=== PATIENT | female | born 1950 | race Caucasian/White ===

== ENCOUNTER 2022-05-20 18:30 | Emergency (ER) | payer OTHER ==
[~2022-05-20] VITALS: Ht 152.4 cm; Wt 136.1 kg
[2022-05-20 19:37] LABS: Source, Urine Clean Catch
[2022-05-20 19:41] LABS: BASOPHILS ABSOLUTE AUTO 0.06 K/mm3 (0.00-0.23); BASOPHILS PERCENT AUTO 1 % (0-2); EOSINOPHILS PERCENT AUTO 1 % (0-6); Hemoglobin 15.8 g/dL (11.5-16.0); IMMATURE GRAN ABSOLUTE AUTO 0.06 K/mm3 (0.00-0.10); IMMATURE GRAN PERCENT AUTO 1 % (0-1); LYMPHOCYTES ABSOLUTE AUTO 2.81 K/mm3 (0.84-5.20); LYMPHOCYTES PERCENT AUTO 30 % (21-46); MONOCYTES ABSOLUTE AUTO 1.01 K/mm3 (0.16-1.47); MONOCYTES PERCENT AUTO 11 % (4-13); Mean Corpuscular HGB 30.2 pg (26.0-34.0); Mean Corpuscular HGB Conc 34.3 g/dL (31.5-36.5); Mean Corpuscular Volume 88 fL (80-100); Mean Platelet Volume 9.4 fL (9.1-12.4); NEUTROPHILS ABSOLUTE AUTO 5.47 K/mm3 (1.96-9.15); NEUTROPHILS PERCENT AUTO 58 % (41-73); Platelet Count 257 K/mm3 (150-400); RDW Coefficient Variation 12.4 % (11.7-14.2); RDW Standard Deviation 40.2 fL (35.1-46.3); Red Blood Cell Count 5.23 M/mm3 (3.80-5.20); White Blood Cell Count 9.51 K/mm3 (4.00-11.30)
[2022-05-20 19:54] LABS: Appearance, Urine Cloudy (Clear); Bilirubin, Urine Neg (Neg); Blood, Urine 3+ (Neg); Color, Urine Yellow (P-Yellow); Glucose Qualitative, Urine Neg (Neg); Ketones, Urine 1+ (Neg); Leukocyte Esterase, Urine 2+ (Neg); Nitrite, Urine Neg (Neg); Protein, Urine 4+ (Neg); Specific Gravity, Urine 1.025 (1.003-1.022); Urobilinogen, Urine NORM (Normal)
[2022-05-20 19:59] LABS: Albumin, Blood 3.6 g/dL (3.4-5.0); Albumin/Globulin Ratio 0.8 (0.8-1.8); Bilirubin, Total 0.6 mg/dL (0.1-1.0); Creatinine, Blood 1.18 mg/dL (0.40-1.00); Globulin, Blood 4.8 g/dL (2.2-4.0); Potassium, Blood 4.4 mmol/L (3.5-5.5); Total Protein, Blood 8.4 g/dL (6.4-8.2)
[2022-05-20 20:16] LABS: Bacteria Many /hpf; Mucus Light (0-Heavy); Red Blood Cells, Urine 0-2 /hpf (0-2); Renal Epithelial Rare /hpf (0-Rare); Squamous Epithelial Cells Rare /hpf (Few); White Blood Cells, Urine 25-50 /hpf (0-5)
[2022-05-21] MEDS ORDERED: Keflex500 MG PO (00:04)
== END 2022-05-21 00:27 | disposition home or self-care (01) ==
LOC: ER 18:30
PROVIDERS: Emergency Medicine
DX: E11.9 Type 2 diabetes mellitus without complications (principal); N39.0 Urinary tract infection, site not specified; R41.0 Disorientation, unspecified; Z88.5 Allergy status to narcotic agent
CPT/HCPCS: 36415; 80053; 81001; 82947; 85025; A9270

== ENCOUNTER 2022-06-29 19:56 | Emergency (ER) | payer OTHER ==
[~2022-06-29] VITALS: Ht 152.4 cm; Wt 99.8 kg
[~2022-06-29 19:56] MED LIST: Keflex500 MG PO
[2022-06-29 21:11] LABS: Albumin, Blood 3.6 g/dL (3.4-5.0); Albumin/Globulin Ratio 0.8 (0.8-1.8); Bilirubin, Total 0.8 mg/dL (0.1-1.0); Bun/Creatinine Ratio 25.6 (12.0-20.0); Calcium, Blood 10.1 mg/dL (8.5-10.1); Creatinine, Blood 1.6 mg/dL (0.40-1.00); Globulin, Blood 4.8 g/dL (2.2-4.0); Potassium, Blood 4.3 mmol/L (3.5-5.5); Total Protein, Blood 8.4 g/dL (6.4-8.2)
[2022-06-29 21:11] LABS: Source, Urine Straight Cath
[2022-06-29 21:16] LABS: Appearance, Urine Turbid (Clear); Blood, Urine 1+ (Neg); Color, Urine Yellow (P-Yellow); Glucose Qualitative, Urine Neg (Neg); Ketones, Urine Neg (Neg); Leukocyte Esterase, Urine 3+ (Neg); Nitrite, Urine Pos (Neg); Protein, Urine 3+ (Neg); Specific Gravity, Urine 1.025 (1.003-1.022); Urobilinogen, Urine 1+ (Normal)
[2022-06-29 21:22] LABS: Bilirubin, Urine 1+ (Neg)
[2022-06-29 21:23] LABS: Bacteria Many /hpf; Squamous Epithelial Cells Few /hpf (Few); White Blood Cells, Urine TNTC /hpf (0-5)
[2022-06-29 21:41] LABS: BASOPHILS ABSOLUTE AUTO 0.05 K/mm3 (0.00-0.23); BASOPHILS PERCENT AUTO 0 % (0-2); EOSINOPHILS ABSOLUTE AUTO 0.13 K/mm3 (0.00-0.68); EOSINOPHILS PERCENT AUTO 1 % (0-6); Hematocrit 45.8 % (33.0-51.0); Hemoglobin 15.7 g/dL (11.5-16.0); IMMATURE GRAN ABSOLUTE AUTO 0.04 K/mm3 (0.00-0.10); IMMATURE GRAN PERCENT AUTO 0 % (0-1); LYMPHOCYTES ABSOLUTE AUTO 1.79 K/mm3 (0.84-5.20); LYMPHOCYTES PERCENT AUTO 15 % (21-46); MONOCYTES ABSOLUTE AUTO 0.93 K/mm3 (0.16-1.47); MONOCYTES PERCENT AUTO 8 % (4-13); Mean Corpuscular HGB Conc 34.3 g/dL (31.5-36.5); Mean Corpuscular Volume 88 fL (80-100); Mean Platelet Volume 9.7 fL (9.1-12.4); NEUTROPHILS PERCENT AUTO 75 % (41-73); Platelet Count 227 K/mm3 (150-400); RDW Standard Deviation 38.5 fL (35.1-46.3); Red Blood Cell Count 5.23 M/mm3 (3.80-5.20); White Blood Cell Count 11.94 K/mm3 (4.00-11.30)
[2022-06-29 22:04] LABS: Influenza A, PCR NEGATIVE (NEGATIVE); Influenza B, PCR NEGATIVE (NEGATIVE); Resp Syncytial Virus, PCR NEGATIVE (NEGATIVE); SARS-Cov-2 (COVID-19) PCR, MMC NEGATIVE (NEGATIVE)
[2022-06-29] MEDS ORDERED: CEFD300 PO (23:45)
== END 2022-06-30 01:13 | disposition home or self-care (01) ==
LOC: ER 19:56
PROVIDERS: Emergency Medicine; Student in an Organized Health Care Education/Training Program
DX: N39.0 Urinary tract infection, site not specified (principal); R41.0 Disorientation, unspecified; E86.0 Dehydration; E11.9 Type 2 diabetes mellitus without complications; Z20.822 Contact with and (suspected) exposure to COVID-19; Z79.899 Other long term (current) drug therapy; Z88.5 Allergy status to narcotic agent
CPT/HCPCS: 0241U; 80053; 81001; 85025; 87077; 87086; 87186; J0696; J7030; P9612

== ENCOUNTER 2022-07-10 19:28 | Inpatient (IN) | payer OTHER ==
[~2022-07-10] VITALS: Ht 152.4 cm; Wt 109.5 kg
[~2022-07-10 19:28] MED LIST changes: +CEFD300 PO
[2022-07-10 20:48] LABS: Source, Urine Straight Cath
[2022-07-10 20:51] LABS: BASOPHILS ABSOLUTE AUTO 0.07 K/mm3 (0.00-0.23); BASOPHILS PERCENT AUTO 0 % (0-2); EOSINOPHILS ABSOLUTE AUTO 0.06 K/mm3 (0.00-0.68); EOSINOPHILS PERCENT AUTO 0 % (0-6); Hematocrit 43.5 % (33.0-51.0); Hemoglobin 15.3 g/dL (11.5-16.0); IMMATURE GRAN ABSOLUTE AUTO 0.13 K/mm3 (0.00-0.10); IMMATURE GRAN PERCENT AUTO 1 % (0-1); LYMPHOCYTES ABSOLUTE AUTO 1.69 K/mm3 (0.84-5.20); LYMPHOCYTES PERCENT AUTO 10 % (21-46); MONOCYTES PERCENT AUTO 6 % (4-13); Mean Corpuscular HGB 30.1 pg (26.0-34.0); Mean Corpuscular HGB Conc 35.2 g/dL (31.5-36.5); Mean Corpuscular Volume 86 fL (80-100); Mean Platelet Volume 9.3 fL (9.1-12.4); NEUTROPHILS ABSOLUTE AUTO 13.65 K/mm3 (1.96-9.15); NEUTROPHILS PERCENT AUTO 82 % (41-73); Platelet Count 383 K/mm3 (150-400); RDW Coefficient Variation 12.4 % (11.7-14.2); RDW Standard Deviation 38.5 fL (35.1-46.3); Red Blood Cell Count 5.08 M/mm3 (3.80-5.20)
[2022-07-10 20:52] LABS: Appearance, Urine Hazy (Clear); Bilirubin, Urine Neg (Neg); Blood, Urine 2+ (Neg); Color, Urine Yellow (P-Yellow); Glucose Qualitative, Urine Neg (Neg); Ketones, Urine Neg (Neg); Leukocyte Esterase, Urine Neg (Neg); Nitrite, Urine Neg (Neg); Protein, Urine 2+ (Neg); Urobilinogen, Urine NORM (Normal)
[2022-07-10] MEDS ORDERED: ALLOPURINOL100 M1 PO (21:04)
[2022-07-10] MEDS ORDERED: ATEN50 PO (21:04)
[2022-07-10] MEDS ORDERED: HYDCHL25 PO (21:05)
[2022-07-10] MEDS ORDERED: Prinivil10 MG PO (21:05)
[2022-07-10 21:06] LABS: Amorphous Light (0-Heavy); Bacteria Few /hpf; Hyaline Casts 0-2 /lpf (0-2); Red Blood Cells, Urine 0-2 /hpf (0-2); Squamous Epithelial Cells Mod /hpf (Few); White Blood Cells, Urine 0-2 /hpf (0-5)
[2022-07-10] MEDS ORDERED: TRESIBA FL200 UNIT/2 SC (21:09)
[2022-07-10 21:10] LABS: Albumin, Blood 2.7 g/dL (3.4-5.0); Albumin/Globulin Ratio 0.5 (0.8-1.8); Bilirubin, Total 0.4 mg/dL (0.1-1.0); Bun/Creatinine Ratio 27.8 (12.0-20.0); Calcium, Blood 9.7 mg/dL (8.5-10.1); Creatinine, Blood 1.87 mg/dL (0.40-1.00); Globulin, Blood 5.4 g/dL (2.2-4.0); Potassium, Blood 3.1 mmol/L (3.5-5.5); Total Protein, Blood 8.1 g/dL (6.4-8.2)
[2022-07-10 22:33] LABS: Influenza A, PCR NEGATIVE (NEGATIVE); Influenza B, PCR NEGATIVE (NEGATIVE); Resp Syncytial Virus, PCR NEGATIVE (NEGATIVE); SARS-Cov-2 (COVID-19) PCR, MMC NEGATIVE (NEGATIVE)
[2022-07-11 01:36] LABS: Adenovirus F 40/41 Not Detected (NOT DETECT); Astrovirus Not Detected (NOT DETECT); Campylobacter Sp Not Detected (NOT DETECT); Cryptosporidium Not Detected (NOT DETECT); Cyclospora Cayetanensis Not Detected (NOT DETECT); E. Coli O157 Not Detected (NOT DETECT); Entamoeba Histolytica Not Detected (NOT DETECT); Enteroaggregative E. coli-EAEC Not Detected (NOT DETECT); Enteropathogenic E. coli-EPEC Not Detected (NOT DETECT); Enterotoxigenic E. coli-ETEC Not Detected (NOT DETECT); Giardia Lamblia Not Detected (NOT DETECT); Norovirus GI/GII Not Detected (NOT DETECT); Plesiomonas Shigelloides Not Detected (NOT DETECT); Rotavirus A Not Detected (NOT DETECT); Salmonella Sp Not Detected (NOT DETECT); Sapovirus Not Detected (NOT DETECT); Shiga Toxin-prod E. coli-STEC Not Detected (NOT DETECT); Shigella/Enteroin E. coli-EIEC Not Detected (NOT DETECT); Vibrio Cholerae Not Detected (NOT DETECT); Vibrio Sp Not Detected (NOT DETECT); Yersinia Enterocolitica Not Detected (NOT DETECT)
--- NOTE | 2022-07-11 04:34 | NUR ---
SHIFT SUMMARY NOC ADMIT FROM ER WITH C/O INCREASED CONFUSION/WEAKNESS. PT A/O TO SELF AND FAMILY. PT HAS DEMENTIA. PT HAS UTI WHICH HAS BEEN LINGERING FOR 1 MONTH. OFFICIAL DX ACUTE DIVERTICULITIS. PT HAS DIARHHEA AND IS C DIF POSITIVE AND ON ENTERIC ISO PRECATIONS. PT IS INCONTINENT OF BOTH BM/URINE. PT HAS PROLAPSED HEMMOROID AND REDDENDED SACRAL AREA WHICH DEVELOPED A COUPLE HOURS AFTER PT ARRIVED EXCORIATION FROM 2 LIQUID/MUCUS INC BM PT HAD SINCE ARRIVING. PT HAS PALLIATIVE CARE AND PT/OT CONSULT/EVALS ORDERED. PT HAS CT ABD/PELVIS WITH CONTRAST AND 1V CHEST X-RAY ORDERED. PT POTASSIUM WAS 3.1 IN ED AND GIVEN 40 MEQ OF POTASSIUM, AWAITING AM LABS TO EVALUATE REPLACEMENT. PT CURRENTLY LIVES WITH GROWN GRANDKIDS AND FAMILY IS TALKING TO [facility] FOR [facility] PLACEMENT. PT SON ALEJO [phone] WILL BE IN IN AM TO ANSWER QUESTIONS AND PROVIDE MEDICAL HX FOR PT. PT HAS LR INFUSING @ 125 MLS. PT IS CURRENTLY RESTING WITH BED ALARM ON, BED IN LOWEST POSITION, AND CALL LIGHT WITHIN REACH. WCTM.
[2022-07-11 06:27] LABS: Bun/Creatinine Ratio 27.6 (12.0-20.0); Calcium, Blood 9.3 mg/dL (8.5-10.1); Creatinine, Blood 1.74 mg/dL (0.40-1.00); Potassium, Blood 3.3 mmol/L (3.5-5.5)
--- NOTE | 2022-07-11 14:34 | NUR ---
Attempted to see Pt. Physical Therapy currently in evaluating Pt. Pt pleasantly confused and unable to answer therapy's orientation questions appropriately. Spoke with Primary RN Lashawn and discussed case. Called and spoke with Pt's son Stephen. Provided update and reviewed plan of care. Engaged in therapeutic discussion regarding Pt's code status wishes. Educated on life sustaining treatments including risks and implications to CPR. Son Stephen reports Pt's wishes are DNR. Offered therapeutic listening and answered questions. Deferred some questions for LEEROY Guadalupe to answer regarding D/C plan. Setphen expresses appreciation and reports no other concerns at this time. Spoke with RN Anayeli Sosa and relayed son Stephen's request for a phone call regarding D/C plan. Palliative Care will remain available.
--- NOTE | 2022-07-11 18:56 | NUR ---
SHIFT SUMMARY- PT HAS HAD NO ACUTE CHANGES. SHE CONTINUES TO HAVE FREQUENT LOOSE STOOLS. SHE IS INCONTINENT OF BOWEL AND BLADDER. 1PA WITH ROLL AND CHANGE. BEDREST AT THIS TIME THE PT IS UNABLE TO FOLLOW INSTRUCTIONS WHEN IT COMES TO TRANSFERING. PHYSICAL THERAPY SAW THE PT AND NOTED THEY COULD NOT GET HER TO TRANSFER OR EVEN PERFORM A SINGLE SIT TO STAND. PT SON STATED THREE WEEKS AGO THE PT WAS WALKING AT HOME WITH A FWW INDEPENDENTLY. SHE HAS REQUIRED INCREASINGLY MORE ASSISTANCE WITH BASIC ADLS AND TRANSFERS HAVE BECOME FAR TOO DIFFICULT FOR THE FAMILY TO MANAGE. THEY ARE TRYING TO GET HER PLACED IN A FACILITY. CARE MANAGEMENT HAS SPOKEN TO THE FAMILY. PT IN BED CALL LIGHT IN REACH NO S&S OF DISTRESS NOTED. WILL CTM AND PASS ON TO NIGHT RN IN REPORT.
[2022-07-12 05:28] LABS: BASOPHILS ABSOLUTE AUTO 0.06 K/mm3 (0.00-0.23); BASOPHILS PERCENT AUTO 0 % (0-2); EOSINOPHILS ABSOLUTE AUTO 0.19 K/mm3 (0.00-0.68); EOSINOPHILS PERCENT AUTO 1 % (0-6); Hematocrit 37.8 % (33.0-51.0); Hemoglobin 13.3 g/dL (11.5-16.0); IMMATURE GRAN PERCENT AUTO 1 % (0-1); LYMPHOCYTES ABSOLUTE AUTO 2.11 K/mm3 (0.84-5.20); LYMPHOCYTES PERCENT AUTO 12 % (21-46); MONOCYTES ABSOLUTE AUTO 1.21 K/mm3 (0.16-1.47); MONOCYTES PERCENT AUTO 7 % (4-13); Mean Corpuscular HGB 29.6 pg (26.0-34.0); Mean Corpuscular HGB Conc 35.2 g/dL (31.5-36.5); Mean Corpuscular Volume 84 fL (80-100); Mean Platelet Volume 9.3 fL (9.1-12.4); NEUTROPHILS PERCENT AUTO 78 % (41-73); Platelet Count 341 K/mm3 (150-400); RDW Coefficient Variation 12.4 % (11.7-14.2); RDW Standard Deviation 37.3 fL (35.1-46.3); Red Blood Cell Count 4.49 M/mm3 (3.80-5.20); White Blood Cell Count 16.97 K/mm3 (4.00-11.30)
--- NOTE | 2022-07-12 06:00 | NUR ---
END OF SHIFT NURSING REPORT Admitted on the Jul 10 for acute diverticulitis, confusion, weakness and diahhrea. Tested positive for C-Diff and is on isolation. She is pleasantly confused and carries a simple conversation. Oriented to self and place, without full understanding on purpose on current events, along with her disease process. She had 3x episodes of loose large stool, brown with mucous and foul smell. She has skin excoriation without crusting or scabbing in damaris -area d/t frequent stool and urine incontinence. Barrier cream to excoriated areas, and mepilex form dressing applied to coccyx area
[2022-07-12 06:37] LABS: Albumin, Blood 2.3 g/dL (3.4-5.0); Albumin/Globulin Ratio 0.5 (0.8-1.8); Bilirubin, Total 0.4 mg/dL (0.1-1.0); Bun/Creatinine Ratio 21.3 (12.0-20.0); Calcium, Blood 9.1 mg/dL (8.5-10.1); Creatinine, Blood 1.5 mg/dL (0.40-1.00); Globulin, Blood 4.5 g/dL (2.2-4.0); Potassium, Blood 3.1 mmol/L (3.5-5.5); Total Protein, Blood 6.8 g/dL (6.4-8.2)
--- NOTE | 2022-07-12 16:19 | NUR ---
SHIFT SUMMARY- PT SEEMS A LITTLE MORE COGNITIVELY CLEAR TODAY, INTERACTING MORE READILY WITH STAFF. PT IS ABLE TO CARRY ON SHORT CONVERSATIONS WITH STAFF TODAY; YESTERDAY CONVERSATIONS WERE MORE ONE SIDED THE PT ONLY ANSWERED YES AND NO QUESTIONS. TODAY SHE EXPOUNDS ON THAT. THE PT WAS ASSISTED TO THE CHAIR BY NURSING STAFF, BUT THAT WAS DIFFICULT. CALLED FOR PHYSICAL THERAPY, THEY CAME TO SEE THE PT AND THE PT WAS UNABLE TO STAND FROM THE CHAIR. PER PHYSICAL THERAPY THE PT IS TO BE A LIFT PT FOR ALL TRANSFERS. PT IS PEPARING TO TRANSFER TO ROOM 345 FOR THE CIELING LIFT. ONCE PT IS TRANSFERED TO THE ROOM WITH THE LIFT, THE PLAN IS TO GET HER UP IN THE CHAIR FOR MEALS. PT IS INCONTINENT OF BOWEL AND BLADDER, HOWEVER SHE DOES ASK STAFF TO HELP HER GO TO THE BATHROOM WHEN SHE NEEDS CLEANING. WILL CTM AND PASS ON TO NIGHT RN IN REPORT.
[2022-07-13 05:44] LABS: BASOPHILS ABSOLUTE AUTO 0.09 K/mm3 (0.00-0.23); BASOPHILS PERCENT AUTO 1 % (0-2); EOSINOPHILS PERCENT AUTO 3 % (0-6); Hematocrit 38.2 % (33.0-51.0); Hemoglobin 13.4 g/dL (11.5-16.0); IMMATURE GRAN ABSOLUTE AUTO 0.13 K/mm3 (0.00-0.10); IMMATURE GRAN PERCENT AUTO 1 % (0-1); LYMPHOCYTES ABSOLUTE AUTO 2.55 K/mm3 (0.84-5.20); LYMPHOCYTES PERCENT AUTO 19 % (21-46); MONOCYTES ABSOLUTE AUTO 1.03 K/mm3 (0.16-1.47); MONOCYTES PERCENT AUTO 8 % (4-13); Mean Corpuscular HGB 29.7 pg (26.0-34.0); Mean Corpuscular HGB Conc 35.1 g/dL (31.5-36.5); Mean Corpuscular Volume 85 fL (80-100); Mean Platelet Volume 9.7 fL (9.1-12.4); NEUTROPHILS ABSOLUTE AUTO 9.62 K/mm3 (1.96-9.15); NEUTROPHILS PERCENT AUTO 70 % (41-73); Platelet Count 356 K/mm3 (150-400); RDW Coefficient Variation 12.4 % (11.7-14.2); RDW Standard Deviation 37.6 fL (35.1-46.3); Red Blood Cell Count 4.51 M/mm3 (3.80-5.20); White Blood Cell Count 13.82 K/mm3 (4.00-11.30)
[2022-07-13 06:13] LABS: Bun/Creatinine Ratio 21.1 (12.0-20.0); Calcium, Blood 9.2 mg/dL (8.5-10.1); Creatinine, Blood 1.33 mg/dL (0.40-1.00); Potassium, Blood 3.3 mmol/L (3.5-5.5)
--- NOTE | 2022-07-13 06:30 | NUR ---
END OF SHIFT NURSING REPORT Admitted on the Jul 10 for acute diverticulitis, confusion, weakness and diahhrea. Tested positive for C-Diff and is on isolation. Received report from Lashawn at 1900 and resumed PT care. She was sitting at bedside chair upright and pleasant. She was put back in bed using a ceiling lift without incidence. She is Oriented to self and place, remains confused on time and purporse. She had 2x episodes of loose stool, brown with mucous and foul smell. She has skin excoriation without crusting or scabbing in damaris -area d/t frequent stool and urine incontinence. Barrier cream to excoriated areas, and mepilex form dressing applied to coccyx area Serum potassium 3.3, notified Dr morris and coverage was ordered and administered.
--- NOTE | 2022-07-13 06:30 | NUR ---
END OF SHIFT NURSING REPORT Admitted on 07/11/2022 for fever, hypotention and increased confusion. She is talkative, oriented to self, and confused by new surroundings and time. Last hemodialysis (HD) 07/12/22, and planned on getting another HD tomorrow prior to resuming her regular schedule of MWF. HD access on Right Subclavian with a permanent dual portal cath wrapped in gauze. Site is clean with no s/s of infection or infiltration. Minimal x1-assist out of bed to bathroom using rolling walker, she is weak with unsteady gait. 0620: Kerline from [facility] called to report patient conversion from SR to Afib W/RVR 120-140's. Dr Stanley notified and ordered lopressor IVP.
--- NOTE | 2022-07-13 19:43 | NUR ---
SHIFT SUMMARY- PT HAS HAD NO ACUTE CHANGE T/O THE SHIFT, SHE WAS STARTED ON BANATROL AND HER LAST STOOL WAS FAR MORE SOFT AND NON FORMED RATHER THAN LIQUID. THE PT HAS HAD LESS FREQUENT STOOLS T/O THE SHIFT WELL. THE PT HAS BEEN UP IN THE CHAIR FOR ALL MEALS TODAY AND SHE WAS ABLE TO STAND AND TAKE SOME STEPS WITH THERAPY. BEDSIDE RPEORT COMPLETED WITH NIGHT RN, NO S&S OF DISTRESS NOTED AT THE TIME OF REPORT.
--- NOTE | 2022-07-14 06:00 | NUR ---
END OF SHIFT NURSING REPORT Admitted on the Jul 10 for acute diverticulitis, confusion, weakness and diahhrea. Tested positive for C-Diff and is on isolation. Received report from Lashawn at 1900 and resumed PT care. She was sitting at bedside chair upright and pleasant. Maximum assist to stand and use bedside commode and back to chair. Used ceiling lift ro put her back in bed. She is Oriented to self and place, remains confused on time and purporse. x1 bowel movement, semi-formed. She has skin excoriation without crusting or scabbing in damaris -area d/t frequent stool and urine incontinence. Barrier cream to excoriated areas, and mepilex form dressing applied to coccyx area Stayed up all night and stated she sleeps during the day.
[2022-07-14 06:31] LABS: BASOPHILS ABSOLUTE AUTO 0.09 K/mm3 (0.00-0.23); BASOPHILS PERCENT AUTO 1 % (0-2); EOSINOPHILS ABSOLUTE AUTO 0.48 K/mm3 (0.00-0.68); EOSINOPHILS PERCENT AUTO 5 % (0-6); Hematocrit 39.4 % (33.0-51.0); Hemoglobin 13.7 g/dL (11.5-16.0); IMMATURE GRAN ABSOLUTE AUTO 0.27 K/mm3 (0.00-0.10); IMMATURE GRAN PERCENT AUTO 3 % (0-1); LYMPHOCYTES ABSOLUTE AUTO 2.38 K/mm3 (0.84-5.20); LYMPHOCYTES PERCENT AUTO 24 % (21-46); MONOCYTES ABSOLUTE AUTO 0.99 K/mm3 (0.16-1.47); MONOCYTES PERCENT AUTO 10 % (4-13); Mean Corpuscular HGB 29.4 pg (26.0-34.0); Mean Corpuscular HGB Conc 34.8 g/dL (31.5-36.5); Mean Corpuscular Volume 85 fL (80-100); Mean Platelet Volume 9.7 fL (9.1-12.4); NEUTROPHILS ABSOLUTE AUTO 5.69 K/mm3 (1.96-9.15); NEUTROPHILS PERCENT AUTO 58 % (41-73); Platelet Count 402 K/mm3 (150-400); RDW Coefficient Variation 12.4 % (11.7-14.2); RDW Standard Deviation 38.3 fL (35.1-46.3); Red Blood Cell Count 4.66 M/mm3 (3.80-5.20)
[2022-07-14 06:54] LABS: Bun/Creatinine Ratio 17.5 (12.0-20.0); Calcium, Blood 9.3 mg/dL (8.5-10.1); Creatinine, Blood 1.2 mg/dL (0.40-1.00); Potassium, Blood 3.6 mmol/L (3.5-5.5)
--- NOTE | 2022-07-14 17:54 | NUR ---
SHIFT SUMMARY: NO NEW CHANGES THIS SHIFT. PATIENT ORIENTED TO SELF. CALM, PLEASANTLY CONFUSED AND FOLLOW SIMPLE DIRECTIONS. PATIENT STILL ON CONTACT ISOLATION FOR CDIFF POSITIVE. PATIENT HAD 4 MUCOUSY, BROWN UNFORMED BM THIS SHIFT. PATIENT WAS UP IN THE CHAIR USING CEILING LIFT FOR BREAKFAST. PATIENT WAS ABLE TO PARTICIPATE c PT MOBILITY IN BED THIS PM. PATIENT REFUSE TO SIT-UP IN THE CHAIR FOR LUNCH AND DINNER. PATIENT INCONTINENCE OF BOWELS AND BLADDER AND ATTENDS INPLACE. ATTENDS CHANGED AND Q2 TURNS T/O SHIFT. PATIENT PULLED IV TO L HAND. NO IV ACCESS AT THIS TIME. RECEIVED ORAL ABX. VITAL SIGNS REVEIWED. PATIENT STILL AWAITING TO BE DISCHARGE TO [facility]. [facility] WON'T ACCEPT ADMISSION ON THE WEEKEND. BED ALARM ON FOR SAFETY. CALL LIGHT IN REACH. REACH
--- NOTE | 2022-07-15 06:00 | NUR ---
END OF SHIFT NURSING REPORT Admitted on the Jul 10 for acute diverticulitis, confusion, weakness and diahhrea. Tested positive for C-Diff and is on isolation. Received report from Lashawn at 1899 and resumed PT care. She sat at bedside chair until 2129, a sling and ceiling lift was used to place her back in bed. She is Oriented to self and place, remains confused on time and purporse. Uses sarcasim to compensate for confusion. x2 LARGE bowel movement, brown, semi-formed. She has skin excoriation in damaris -area d/t frequent stool and urine incontinence. Barrier cream applied to excoriated areas, and mepilex form dressing applied to coccyx area. No redness to coccyx. Sleeping hours approximately 4 hrs.
[2022-07-15 06:18] LABS: Bun/Creatinine Ratio 16.1 (12.0-20.0); Calcium, Blood 9.6 mg/dL (8.5-10.1); Creatinine, Blood 1.18 mg/dL (0.40-1.00); Potassium, Blood 3.6 mmol/L (3.5-5.5)
--- NOTE | 2022-07-15 16:36 | NUR ---
SHIFT SUMMARY: NO NEW CHANGES THIS SHIFT. PATIENT STILL ON CONTACT ISOLATION FOR CDIFF POSITIVE. PATIENT HAD 2 LARGE BROWN SOFT BM THIS SHIFT. PATIENT HAS BEEN TOLERATING SITTING UP IN THE CHAIR FOR BREAKFAST AND LUNCH USING CEILING LIFT TO TRANSFER. DENIES CP/PRESSURE, NV, SOB. PATIENT CONTINUE TO BE ORIENTED TO SELF AND PLACE. INCONTINENCE OF URINE AND STOOL, ATTENDS INPLACE. ATTENDS CHANGED AND Q2 TURNS T/O SHIFT. REDNESS TO UNDER BREAST APPLIED POWDER. REDNESS TO GROIN AREA CALAZIME CREAM WAS APPLIED T/O THE DAY. MIPELEX DRESSING CHANGED TO COCCYX FOR PROTECTION. IV TO R FOREARM SALINE LOCKED. VITAL SIGNS REVIEWED. BED ALARM ON FOR SAFETY. CALL LIGHT IN REACH.
--- NOTE | 2022-07-16 06:00 | NUR ---
END OF SHIFT NURSING REPORT Admitted on the Jul 10 for acute diverticulitis, confusion, weakness and diahhrea. Tested positive for C-Diff and is on isolation. She is Oriented to self and place, remains confused on time and purporse. Uses sarcasim to compensate for confusion. x1 bowel movement, semi-formed. She has skin excoriation in damaris -area d/t frequent stool and urine incontinence. Barrier cream applied to excoriated areas, and mepilex form dressing applied to coccyx area DId not sleep last night.
--- NOTE | 2022-07-16 17:16 | NUR ---
SHIFT SUMMARY PATIENT IS ALERT BUT NOT ORIENTED. NO ACUTE EVENTS THIS SHIFT. VITAL SIGNS REVIEWED. PATIENT IS A LIFT PATIENT. PATIENT OVERSTATES HER PHYSICAL ABILITY. PATIENT HAS NOT COMPLAINED OF PAIN, NAUSEA, SOB, OR VOMITTING THIS SHIFT. PATIENT CALLS TO BE PLACED ON BEDPAN. PATIENT HAS HAD ONE BM THIS SHIFT. BED IN LOCKED AND LOWEST POSITION. CALL LIGHT IN PLACE. WILL MONITOR UNTIL SHIFT CHANGE.
--- NOTE | 2022-07-17 06:00 | NUR ---
END OF SHIFT NURSING REPORT Admitted on the Jul 10 for acute diverticulitis, confusion, weakness and diahhrea. Tested positive for C-Diff and is on isolation. hx of dementia, and confused on time and situation. She is able to hold on a conversation. She is incontinent bowel and bladder, does not use call light to request for care. Using Banana flakes to solidify liquid stool. Did not get up during day time hours. Used ceiling ari lift to get patient to bedside chairwhere she sat from [id number]. She was able to pivot to bedside commode prior to returning to bed. She continues to have insomnia and barely slept through the night.
--- NOTE | 2022-07-17 11:03 | NUR ---
NO IV ACCESS IV INFILTRATED. PER VALERIE HO FOR NO IV ACCESS.
--- NOTE | 2022-07-17 14:05 | NUR ---
ANTIFUNTAL ORDERS PATIENT HAS REDNESS UNDER BREAST FOLDS AND GROIN/DELVIN/DELVIN-ANAL AREAS. DISCUSSED WITH Gretchen HO FOR MICONAZOLE POWDER AND NYSTATIN CREAM BID. EMAR UPDATED
--- NOTE | 2022-07-17 17:40 | NUR ---
Shift Summary A/O to self. Confabulatory statements when communicating with staff. Had one dose of banana flakes today but refused the second. No bowel movement this shift, however. 2p lift to chair, able to stand but will not follow directions to move legs for pivoting or side stepping. Pleasant demeanor. Good appetite. C/O mild bilateral leg soreness relieved by massages. Incontinent voids.
--- NOTE | 2022-07-18 07:55 | NUR ---
END OF SHIFT NURSING REPORT Mrs. Nuno was admitted for increased weakness and confusion. Positive C-Diff with frequent stools. She refused her ordered Banana flakes and had 3-loose bowel movements. She has hx of dementia, and is confused on time and situation. Was awake most of the night.
--- NOTE | 2022-07-18 18:11 | NUR ---
SHIFT SUMMARY- PT IS ALERT PLESANT AND COOPERATIVE. SHE IS EATING AND DRINKING WELL. SHE IS INC AND HAVING FREQUENT BMS. WORKED WIT PT THIS SHIFT. PT WOULD NO ATTEMPT TO STAND THIS SHFT. SHE WAS UP TO THE CHAIR FOR BREAKFAST. HER BED IS IN THE LOW POSITION AND CALL LIGHT IS WITIN REACH.
--- NOTE | 2022-07-19 06:00 | NUR ---
END OF SHIFT NURSING REPORT Mrs. Nuno was admitted for increased weakness and confusion. Positive C-Diff and is on vancomycin capsules. She refused her ordered Banana flakes and had 1-loose bowel movements. She has hx of dementia, and is confused on time and situation. Sat on bedside chair until 2230, maximum assist to BSC and Arlene ceiling lift to bed.
--- NOTE | 2022-07-19 19:42 | NUR ---
SHIFT SUMMARY- PT IS ALERT, PLESANT AND COOPERATIVE. SHE IS EATING AND DRINKING WELL. SHE IS WEAK ON HER FEET AND REQUIRES A LIFT FOR TRANSFERS. SHE SLEPT INTERMITENTLY THROUGHOUT THIS SHIFT. HER BED IS IN THE LOW POSITON AND CALL LIGHT IS WITHIN REACH.
--- NOTE | 2022-07-20 06:40 | NUR ---
Shift Summary Pt AOx3, some confusion and difficulty forming responses. Incontinent and on bedrest (lift transfer), attends changed PRN and Q2 turns. C-DIFF contact precautions. Taking PO Vancomyacin. VSS, pleasant and cooperative with care, slept well t/o the night.
--- NOTE | 2022-07-20 16:34 | NUR ---
SHIFT SUMMARY- PT BEDFAST/CHAIRFAST. PT DID PIVOT TO BED SIDE COMMODE TO HAVE BM. A&O X3. PT COOPERATIVE WITH ALL CARE. APPETITE GOOD. FLAT AFFECT. BM SOLID X1. WILL CONTINUE TO MONITOR. CALL LIGHT IN REACH, BED ALARM ON, AND SIDE RAILS UP FOR COMFORT.
--- NOTE | 2022-07-21 05:00 | NUR ---
[facility] started the shift in the chair. We tried to two person assist her for a pivot to the [facility], she was able to stand only, unable to rotate or walk. Used lift to get her back into bed. AOx3, pleasant and cooperative. Refuses banana flakes. Incontinent, attends changed as needed. VSS.
[2022-07-21 05:01] LABS: BASOPHILS ABSOLUTE AUTO 0.11 K/mm3 (0.00-0.23); BASOPHILS PERCENT AUTO 1 % (0-2); EOSINOPHILS ABSOLUTE AUTO 0.22 K/mm3 (0.00-0.68); EOSINOPHILS PERCENT AUTO 2 % (0-6); Hematocrit 40.5 % (33.0-51.0); Hemoglobin 13.5 g/dL (11.5-16.0); IMMATURE GRAN ABSOLUTE AUTO 0.23 K/mm3 (0.00-0.10); IMMATURE GRAN PERCENT AUTO 2 % (0-1); LYMPHOCYTES ABSOLUTE AUTO 3.04 K/mm3 (0.84-5.20); LYMPHOCYTES PERCENT AUTO 28 % (21-46); MONOCYTES ABSOLUTE AUTO 1.12 K/mm3 (0.16-1.47); MONOCYTES PERCENT AUTO 10 % (4-13); Mean Corpuscular HGB 29.3 pg (26.0-34.0); Mean Corpuscular HGB Conc 33.3 g/dL (31.5-36.5); Mean Corpuscular Volume 88 fL (80-100); Mean Platelet Volume 9.3 fL (9.1-12.4); NEUTROPHILS ABSOLUTE AUTO 6.17 K/mm3 (1.96-9.15); NEUTROPHILS PERCENT AUTO 57 % (41-73); Platelet Count 477 K/mm3 (150-400); RDW Coefficient Variation 12.7 % (11.7-14.2); RDW Standard Deviation 40.5 fL (35.1-46.3); White Blood Cell Count 10.89 K/mm3 (4.00-11.30)
[2022-07-21 05:12] LABS: Bun/Creatinine Ratio 24.3 (12.0-20.0); Calcium, Blood 9.8 mg/dL (8.5-10.1); Creatinine, Blood 1.11 mg/dL (0.40-1.00); Potassium, Blood 4.4 mmol/L (3.5-5.5)
--- NOTE | 2022-07-21 18:05 | NUR ---
SHIFT SUMMARY PT IS PLEASANTLY CONFUSED & IS DIRECTABLE. PHYS THERAPY ATTEMPTED TO HAVE PT STAND AND PIVOT TO BSC, PT'S COGNITION WAS UNABLE TO PERFORM TASK. WAS ABLE TO DO SOME EXERCISES IN BED AND WHILE SITTING ON EDGE OF BED. APPETITE IS GOOD.
--- NOTE | 2022-07-22 03:58 | NUR ---
SHIFT UNREMARKABLE. PT TOOK 2100 MEDICATIONS WITHOUT DIFFICULTY AND SLEPT THROUGH MUCH OF REMAINDER OF SHIFT. AGREEABLE AND COOPERATIVE WITH CARE. CONFUSED THROUGHOUT. CALL LIGHT LEFT WITHIN REACH.
--- NOTE | 2022-07-23 03:09 | NUR ---
SORTING SUPERVISOR SUMMARY NO ACUTE EVENTS THROUGHOUT THE NIGHT. A&OX2. PATIENT EFFECTIVELY COMMUNICATES NEEDS. VSS. RR EVEN AND UNLABORED ON RA. PATIENT IS BEDFAST AND REQUIRES Q2 HOUR TURNS TO MAINTAIN GOOD SKIN INTEGRITY. NO REPORTS OF PAIN. BED LOW AND LOCKED. CALL LIGHT WITHIN REACH. WILL CONTINUE TO MONITOR.
--- NOTE | 2022-07-23 18:33 | NUR ---
PT AAOX1 THIS SHIFT TO SELF. ABLE TO COMMUNICATE HER NEEDS. CALM AND PLEASANT.
--- NOTE | 2022-07-24 04:11 | NUR ---
HOTEL LOBBY CONCIERGE SUMMARY NO ACUTE EVENTS THROUGHOUT THE NIGHT. A&OX1. SLOW SPEECH. PATIENT EFFECTIVELY COMMUNICATES NEEDS OTHERWISE. VSS. RR EVEN AND UNLABORED ON RA. NO PAIN REPORTED THIS SHIFT. BED LOW AND LOCKED. CALL LIGHT WITHIN REACH. WILL CONTINUE TO MONITOR.
[2022-07-24] MEDS ORDERED: AMLO10 PO (09:45)
--- NOTE | 2022-07-24 11:46 | NUR ---
PT WAS DISCHARGED TO [facility] AND TAKEN BY EMS TRANSPORT AT 1100. PT STABLE. THIS RN CALLED [facility] TWO TIMES AND ASKED TO GIVE REPORT TO THE NURSE. NO CALL BACK WAS RECEIVED. RN TO ATTEMPT TO CALL AGAIN LATER TODAY TO GIVE REPORT. PT LEFT WITH ALL OF HER BELONGINGS.
== END 2022-07-24 11:16 | disposition home or self-care (01) | DRG 371 ==
LOC: ER 19:28 → MEDS 19:29
PROVIDERS: Emergency Medicine; Family Medicine; Internal Medicine; ADMIT Internal Medicine
DX: A04.72 Enterocolitis due to Clostridium difficile, not specified as recurrent (principal); G93.41 Metabolic encephalopathy; K57.92 Diverticulitis of intestine, part unspecified, without perforation or abscess without bleeding; N17.9 Acute kidney failure, unspecified; F03.90 Unspecified dementia, unspecified severity, without behavioral disturbance, psychotic disturbance, mood disturbance, and anxiety; E86.0 Dehydration; E87.6 Hypokalemia; N18.30 Chronic kidney disease, stage 3 unspecified; E11.22 Type 2 diabetes mellitus with diabetic chronic kidney disease; I12.9 Hypertensive chronic kidney disease with stage 1 through stage 4 chronic kidney disease, or unspecified chronic kidney disease; M10.9 Gout, unspecified; Z20.822 Contact with and (suspected) exposure to COVID-19; Z88.5 Allergy status to narcotic agent; Z79.2 Long term (current) use of antibiotics; Z87.440 Personal history of urinary (tract) infections; Z87.891 Personal history of nicotine dependence; Z79.899 Other long term (current) drug therapy; Z79.4 Long term (current) use of insulin; Z79.811 Long term (current) use of aromatase inhibitors
CPT/HCPCS: 0241U; 36415; 71045; 74177; 80048; 80053; 81001; 82947; 83605; 83735; 85025; 87324; 87507; 93005; 93010; 96361; 96365; 96372; 96376; 97110; 97116; 97129-GO-CO; 97130-GO-CO; 97162; 97166; 97168; 97530; 97535; 99285-25; A9270; G0378; J0696; J1644; J1815; J7030; J7120; Q9967

== ENCOUNTER → 2022-08-23 | Outpatient (CLI) | payer OTHER ==
[~2022-08-23] MED LIST changes: +ALLOPURINOL100 M1 PO; +AMLO10 PO; +ATEN50 PO; +HYDCHL25 PO; +Prinivil10 MG PO; +TRESIBA FL200 UNIT/2 SC
== END ==
LOC: LAB SHORT 14:13 → LAB 14:13
DX: R19.7 Diarrhea, unspecified (principal); Z86.19 Personal history of other infectious and parasitic diseases
CPT/HCPCS: 87177; 87209

== ENCOUNTER → 2022-08-28 | Outpatient (CLI) | payer OTHER ==
[2022-08-30 07:57] LABS: C DIFFICILE DNA POSITIVE (Negative)
== END | disposition home or self-care (01) ==
LOC: LAB SHORT 13:30 → LAB 13:30
PROVIDERS: Family Medicine
DX: R19.7 Diarrhea, unspecified (principal)
CPT/HCPCS: 87324; 87493

== ENCOUNTER → 2022-10-11 | Outpatient (CLI) | payer OTHER ==
[2022-10-11 18:20] LABS: Source, Urine Clean Catch
[2022-10-11 19:04] LABS: Appearance, Urine Cloudy (Clear); Bilirubin, Urine Neg (Neg); Blood, Urine 1+ (Neg); Color, Urine Yellow (P-Yellow); Glucose Qualitative, Urine Neg (Neg); Ketones, Urine Neg (Neg); Leukocyte Esterase, Urine 3+ (Neg); Nitrite, Urine Pos (Neg); Protein, Urine 1+ (Neg); Urobilinogen, Urine NORM (Normal)
[2022-10-11 19:13] LABS: Bacteria Many /hpf; Red Blood Cells, Urine 0-2 /hpf (0-2); Squamous Epithelial Cells Few /hpf (Few); White Blood Cells, Urine 50-100 /hpf (0-5)
== END | disposition home or self-care (01) ==
LOC: LAB 11:00 → LAB SHORT 11:00
PROVIDERS: Family Medicine
DX: N39.0 Urinary tract infection, site not specified (principal)
CPT/HCPCS: 81001; 87077; 87086; 87186

== ENCOUNTER → 2023-11-26 | Outpatient (CLI) | payer OTHER ==
[~2023-11-26] MED LIST changes: +CEPH500 PO; +SEMGLEE (Y100 UNIT/2 SC
[2023-11-27 13:33] LABS: Appearance, Urine Clear (Clear); Bilirubin, Urine Neg (Neg); Blood, Urine Neg (Neg); Color, Urine Yellow (P-Yellow); Glucose Qualitative, Urine Neg (Neg); Ketones, Urine Neg (Neg); Leukocyte Esterase, Urine 2+ (Neg); Nitrite, Urine Neg (Neg); Protein, Urine 2+ (Neg); Urobilinogen, Urine NORM (Normal)
[2023-11-27 14:16] LABS: Bacteria Many /hpf; Red Blood Cells, Urine 0-2 /hpf (0-2); Squamous Epithelial Cells Few /hpf (Few)
[2023-12-06 08:21] LABS: Source, Urine Voided
== END ==
LOC: LAB 11:52 → LAB SHORT 11:52
PROVIDERS: Family Medicine
DX: N39.0 Urinary tract infection, site not specified (principal)
CPT/HCPCS: 81001; 87077; 87086; 87186

== ENCOUNTER → 2023-12-26 | Outpatient (CLI) | payer OTHER ==
[2023-12-26 13:39] LABS: Source, Urine Voided
[2023-12-26 15:17] LABS: Bilirubin, Urine Neg (Neg); Blood, Urine Neg (Neg); Color, Urine Yellow (P-Yellow); Glucose Qualitative, Urine Neg (Neg); Ketones, Urine Neg (Neg); Leukocyte Esterase, Urine 1+ (Neg); Nitrite, Urine Neg (Neg); Protein, Urine 1+ (Neg); Specific Gravity, Urine 1.025 (1.003-1.022); Urobilinogen, Urine NORM (Normal)
[2023-12-26 15:37] LABS: Appearance, Urine Hazy (Clear)
[2023-12-26 15:38] LABS: Amorphous Light (0-Heavy); Bacteria Mod /hpf; Mucus Light (0-Heavy); Red Blood Cells, Urine 0-2 /hpf (0-2); Squamous Epithelial Cells Few /hpf (Few); Transitional Epithelial Cells Rare /hpf (0-Rare)
== END ==
LOC: LAB SHORT 13:36 → LAB 13:36
PROVIDERS: Family Medicine
DX: N39.0 Urinary tract infection, site not specified (principal)
CPT/HCPCS: 81001; 87086

== ENCOUNTER 2024-05-21 09:55 | Emergency (ER) | payer OTHER ==
[~2024-05-21] VITALS: Ht 152.4 cm; Wt 119.3 kg
[2024-05-21 10:49] LABS: BASOPHILS ABSOLUTE AUTO 0.08 K/mm3 (0.00-0.23); BASOPHILS PERCENT AUTO 1 % (0-2); EOSINOPHILS ABSOLUTE AUTO 0.15 K/mm3 (0.00-0.68); EOSINOPHILS PERCENT AUTO 1 % (0-6); Hematocrit 39.3 % (33.0-51.0); Hemoglobin 13.1 g/dL (11.5-16.0); IMMATURE GRAN ABSOLUTE AUTO 0.17 K/mm3 (0.00-0.10); IMMATURE GRAN PERCENT AUTO 1 % (0-1); LYMPHOCYTES ABSOLUTE AUTO 3.19 K/mm3 (0.84-5.20); LYMPHOCYTES PERCENT AUTO 24 % (21-46); MONOCYTES ABSOLUTE AUTO 1.17 K/mm3 (0.16-1.47); MONOCYTES PERCENT AUTO 9 % (4-13); Mean Corpuscular HGB 30.8 pg (26.0-34.0); Mean Corpuscular HGB Conc 33.3 g/dL (31.5-36.5); Mean Corpuscular Volume 93 fL (80-100); Mean Platelet Volume 9.3 fL (9.1-12.4); NEUTROPHILS ABSOLUTE AUTO 8.52 K/mm3 (1.96-9.15); NEUTROPHILS PERCENT AUTO 64 % (41-73); Platelet Count 265 K/mm3 (150-400); RDW Coefficient Variation 13.1 % (11.7-14.2); Red Blood Cell Count 4.25 M/mm3 (3.80-5.20); White Blood Cell Count 13.28 K/mm3 (4.00-11.30)
[2024-05-21 11:05] LABS: Albumin, Blood 3.3 g/dL (3.4-5.0); Albumin/Globulin Ratio 0.7 (0.8-1.8); Bilirubin, Total 0.3 mg/dL (0.1-1.0); Bun/Creatinine Ratio 30.9 (12.0-20.0); Calcium, Blood 9.6 mg/dL (8.5-10.1); Creatinine, Blood 1.94 mg/dL (0.40-1.00); Globulin, Blood 4.9 g/dL (2.2-4.0); Potassium, Blood 4.5 mmol/L (3.5-5.5); Total Protein, Blood 8.2 g/dL (6.4-8.2)
[2024-05-21 12:03] LABS: Influenza A, PCR NEGATIVE (NEGATIVE); Influenza B, PCR NEGATIVE (NEGATIVE); Resp Syncytial Virus, PCR NEGATIVE (NEGATIVE); SARS-Cov-2 (COVID-19) PCR, MMC NEGATIVE (NEGATIVE)
[2024-05-21] MEDS ORDERED: LORazepam 2 MG/ML 1ML Injection IV ONE (14:50)
[2024-05-21] MEDS ORDERED: NS 1,000 ML IV SCH (14:55)
[2024-05-21 15:41] LABS: Source, Urine Clean Catch
[2024-05-21 15:46] LABS: Appearance, Urine Hazy (Clear); Bilirubin, Urine Neg (Neg); Blood, Urine 1+ (Neg); Color, Urine Yellow (P-Yellow); Glucose Qualitative, Urine Neg (Neg); Ketones, Urine Neg (Neg); Leukocyte Esterase, Urine 3+ (Neg); Nitrite, Urine Pos (Neg); Protein, Urine 1+ (Neg); Specific Gravity, Urine 1.025 (1.003-1.022); Urobilinogen, Urine NORM (Normal)
[2024-05-21 15:52] LABS: Bacteria Many /hpf; Hyaline Casts 0-2 /lpf (0-2); Red Blood Cells, Urine 0-2 /hpf (0-2); Squamous Epithelial Cells Few /hpf (Few)
[2024-05-21] MEDS ORDERED: CEFP200 PO (16:36)
[2024-05-21 17:00] VITALS: BP 125/60
[2024-05-21] MEDS ORDERED: Cefpodoxime Proxetil 200 MG Tab PO ONE (17:05)
== END 2024-05-21 17:56 | disposition home or self-care (01) ==
LOC: ER 09:55
PROVIDERS: Student in an Organized Health Care Education/Training Program
DX: R55 Syncope and collapse (principal); N39.0 Urinary tract infection, site not specified; I10 Essential (primary) hypertension; E11.9 Type 2 diabetes mellitus without complications; Z87.891 Personal history of nicotine dependence; Z79.4 Long term (current) use of insulin; Z79.899 Other long term (current) drug therapy; Z88.5 Allergy status to narcotic agent
CPT/HCPCS: 0241U; 70450; 71045; 72125; 80053; 81001; 83690; 84484; 85025; 93005; 93010; 96360; 96361; 99285-25; A9270; J7030

== ENCOUNTER 2024-05-25 20:05 | Emergency (ER) | payer OTHER ==
[~2024-05-25] VITALS: Ht 152.4 cm; Wt 155.1 kg
[~2024-05-25 20:05] MED LIST changes: +CEFP200 PO
[2024-05-25 21:19] LABS: BASOPHILS ABSOLUTE AUTO 0.06 K/mm3 (0.00-0.23); BASOPHILS PERCENT AUTO 0 % (0-2); EOSINOPHILS ABSOLUTE AUTO 0.07 K/mm3 (0.00-0.68); EOSINOPHILS PERCENT AUTO 0 % (0-6); Hematocrit 39.8 % (33.0-51.0); Hemoglobin 13.2 g/dL (11.5-16.0); IMMATURE GRAN PERCENT AUTO 1 % (0-1); LYMPHOCYTES ABSOLUTE AUTO 2.06 K/mm3 (0.84-5.20); LYMPHOCYTES PERCENT AUTO 13 % (21-46); MONOCYTES ABSOLUTE AUTO 0.97 K/mm3 (0.16-1.47); MONOCYTES PERCENT AUTO 6 % (4-13); Mean Corpuscular HGB 30.4 pg (26.0-34.0); Mean Corpuscular HGB Conc 33.2 g/dL (31.5-36.5); Mean Corpuscular Volume 92 fL (80-100); NEUTROPHILS ABSOLUTE AUTO 12.43 K/mm3 (1.96-9.15); NEUTROPHILS PERCENT AUTO 79 % (41-73); RDW Coefficient Variation 13.2 % (11.7-14.2); RDW Standard Deviation 44.2 fL (35.1-46.3); Red Blood Cell Count 4.34 M/mm3 (3.80-5.20); White Blood Cell Count 15.69 K/mm3 (4.00-11.30)
[2024-05-25 21:30] LABS: Mean Platelet Volume 9.2 fL (9.1-12.4); Platelet Count 310 K/mm3 (150-400)
[2024-05-25 21:39] LABS: Albumin, Blood 3.2 g/dL (3.4-5.0); Albumin/Globulin Ratio 0.7 (0.8-1.8); Bilirubin, Total 0.4 mg/dL (0.1-1.0); Bun/Creatinine Ratio 30.5 (12.0-20.0); Calcium, Blood 9.9 mg/dL (8.5-10.1); Creatinine, Blood 1.41 mg/dL (0.40-1.00); Globulin, Blood 4.9 g/dL (2.2-4.0); Potassium, Blood 5.2 mmol/L (3.5-5.5); Total Protein, Blood 8.1 g/dL (6.4-8.2)
[2024-05-25 22:55] LABS: Source, Urine Straight Cath
[2024-05-25 22:59] LABS: Bilirubin, Urine Neg (Neg); Blood, Urine 4+ (Neg); Glucose Qualitative, Urine Neg (Neg); Ketones, Urine Neg (Neg); Leukocyte Esterase, Urine Neg (Neg); Nitrite, Urine Neg (Neg); Protein, Urine 2+ (Neg); Urobilinogen, Urine NORM (Normal)
[2024-05-25 23:01] LABS: Appearance, Urine Clear (Clear); Color, Urine Yellow (P-Yellow)
[2024-05-25 23:03] LABS: Magnesium, Blood 1.7 mg/dL (1.6-2.4)
[2024-05-25 23:30] LABS: Bacteria Rare /hpf; Squamous Epithelial Cells Few /hpf (Few); White Blood Cells, Urine 0-2 /hpf (0-5)
[2024-05-26 01:00] VITALS: BP 123/54
== END 2024-05-26 01:17 | disposition home or self-care (01) ==
LOC: ER 20:05
PROVIDERS: Student in an Organized Health Care Education/Training Program
DX: R55 Syncope and collapse (principal); R53.83 Other fatigue; D72.829 Elevated white blood cell count, unspecified; R41.0 Disorientation, unspecified; E11.9 Type 2 diabetes mellitus without complications; I10 Essential (primary) hypertension; J44.9 Chronic obstructive pulmonary disease, unspecified; Z87.891 Personal history of nicotine dependence; Z88.5 Allergy status to narcotic agent; Z79.4 Long term (current) use of insulin; Z79.899 Other long term (current) drug therapy
CPT/HCPCS: 51701; 80053; 81001; 83735; 84484; 85025; 93005; 93010; 99284-25

== ENCOUNTER → 2024-10-04 | Outpatient (CLI) | payer OTHER ==
[2024-10-05 12:52] LABS: Appearance, Urine Clear (Clear); Bilirubin, Urine Neg (Neg); Blood, Urine Neg (Neg); Color, Urine Yellow (P-Yellow); Glucose Qualitative, Urine Neg (Neg); Ketones, Urine Neg (Neg); Leukocyte Esterase, Urine 1+ (Neg); Nitrite, Urine Neg (Neg); Protein, Urine 1+ (Neg); Specific Gravity, Urine 1.015 (1.003-1.022); Urobilinogen, Urine NORM (Normal)
[2024-10-05 13:30] LABS: Bacteria Few /hpf; Red Blood Cells, Urine 0-2 /hpf (0-2); Squamous Epithelial Cells Mod /hpf (Few)
== END | disposition home or self-care (01) ==
LOC: LAB SHORT 14:00 → LAB 14:00
PROVIDERS: Family Medicine
DX: N39.0 Urinary tract infection, site not specified (principal)
CPT/HCPCS: 81001; 87086

== ENCOUNTER 2024-11-22 12:46 | Emergency (ER) | payer OTHER ==
[~2024-11-22] VITALS: Ht 172.7 cm; Wt 97.5 kg
[2024-11-22 15:06] LABS: BASOPHILS ABSOLUTE AUTO 0.05 K/mm3 (0.00-0.23); BASOPHILS PERCENT AUTO 1 % (0-2); EOSINOPHILS ABSOLUTE AUTO 0.27 K/mm3 (0.00-0.68); EOSINOPHILS PERCENT AUTO 3 % (0-6); Hematocrit 39.8 % (33.0-51.0); Hemoglobin 12.4 g/dL (11.5-16.0); IMMATURE GRAN PERCENT AUTO 1 % (0-1); LYMPHOCYTES ABSOLUTE AUTO 3.03 K/mm3 (0.84-5.20); LYMPHOCYTES PERCENT AUTO 33 % (21-46); MONOCYTES ABSOLUTE AUTO 1.04 K/mm3 (0.16-1.47); MONOCYTES PERCENT AUTO 11 % (4-13); Mean Corpuscular HGB Conc 31.2 g/dL (31.5-36.5); Mean Corpuscular Volume 96 fL (80-100); Mean Platelet Volume 9.3 fL (9.1-12.4); NEUTROPHILS ABSOLUTE AUTO 4.75 K/mm3 (1.96-9.15); NEUTROPHILS PERCENT AUTO 51 % (41-73); Platelet Count 257 K/mm3 (150-400); RDW Standard Deviation 49.2 fL (35.1-46.3); Red Blood Cell Count 4.14 M/mm3 (3.80-5.20); White Blood Cell Count 9.24 K/mm3 (4.00-11.30)
[2024-11-22 15:21] LABS: Albumin, Blood 3.2 g/dL (3.4-5.0); Albumin/Globulin Ratio 0.7 (0.8-1.8); Bilirubin, Total 0.4 mg/dL (0.1-1.0); Bun/Creatinine Ratio 23.1 (12.0-20.0); Calcium, Blood 9.2 mg/dL (8.5-10.1); Creatinine, Blood 1.47 mg/dL (0.40-1.00); Globulin, Blood 4.7 g/dL (2.2-4.0); Magnesium, Blood 1.8 mg/dL (1.6-2.4); Potassium, Blood 5.8 mmol/L (3.5-5.5); Total Protein, Blood 7.9 g/dL (6.4-8.2)
[2024-11-22 15:43] LABS: Base Excess Venous -6.4 mmol/L; Bicarbonate Venous 19.3 mmol/L (24.0-30.0); PCO2 Venous 46.1 mmHg (38-42); pH Blood Venous 7.26 (7.34-7.37)
[2024-11-22 15:53] LABS: Source, Urine Straight Cath
[2024-11-22 16:04] LABS: Appearance, Urine Hazy (Clear); Bilirubin, Urine Neg (Neg); Blood, Urine 2+ (Neg); Color, Urine Yellow (P-Yellow); Glucose Qualitative, Urine Neg (Neg); Ketones, Urine Neg (Neg); Leukocyte Esterase, Urine Neg (Neg); Nitrite, Urine Neg (Neg); Protein, Urine 2+ (Neg); Specific Gravity, Urine 1.025 (1.003-1.022); Urobilinogen, Urine NORM (Normal)
[2024-11-22 16:27] LABS: White Blood Cells, Urine 0-2 /hpf (0-5)
[2024-11-22 16:28] LABS: Bacteria Mod /hpf; Mucus Light (0-Heavy); Squamous Epithelial Cells Few /hpf (Few)
[2024-11-22 17:35] VITALS: BP 158/88
== END 2024-11-22 18:56 | disposition home or self-care (01) ==
LOC: ER 12:46
PROVIDERS: Emergency Medicine
DX: G47.30 Sleep apnea, unspecified (principal); R41.82 Altered mental status, unspecified; E11.9 Type 2 diabetes mellitus without complications; I10 Essential (primary) hypertension; J44.9 Chronic obstructive pulmonary disease, unspecified; Z91.199 Patient's noncompliance with other medical treatment and regimen due to unspecified reason; Z87.891 Personal history of nicotine dependence; Z88.5 Allergy status to narcotic agent; Z79.4 Long term (current) use of insulin; Z79.899 Other long term (current) drug therapy
CPT/HCPCS: 51701; 70450; 71045; 80053; 81001; 82803; 83735; 83880; 85025; 87086; 99285-25

== ENCOUNTER → 2025-01-29 | Outpatient (CLI) | payer OTHER ==
[~2025-01-29] MED LIST changes: +ALLOPURINOL PO; -ALLOPURINOL100 M1 PO; +BASAGLAR K100 UNIT/3 SC; +DYAZIDE 37.5-21 EACH PO; +NITR100CA PO; +NYSTATIN15 GM TOP; +OLME20 PO; +ONDA4ODT MM; -SEMGLEE (Y100 UNIT/2 SC
[2025-01-29 16:05] LABS: Bilirubin, Urine Neg (Neg); Color, Urine Yellow (P-Yellow); Glucose Qualitative, Urine Neg (Neg); Ketones, Urine Neg (Neg); Leukocyte Esterase, Urine 2+ (Neg); Protein, Urine 2+ (Neg); Specific Gravity, Urine 1.010 (1.003-1.022); Urobilinogen, Urine NORM (Normal)
[2025-01-29 16:23] LABS: White Blood Cells, Urine 25-50 /hpf (0-5)
[2025-01-29 16:24] LABS: Red Blood Cells, Urine 0-2 /hpf (0-2)
== END ==
LOC: LAB SHORT 14:55 → LAB 14:55
PROVIDERS: Family Medicine
DX: N39.0 Urinary tract infection, site not specified (principal)
CPT/HCPCS: 81001; 87086

== ENCOUNTER 2025-02-27 15:08 | Inpatient (IN) | payer OTHER ==
[~2025-02-27] VITALS: Ht 165.1 cm; Wt 124.0 kg
[2025-02-27 16:19] LABS: Source, Urine Straight Cath
[2025-02-27 16:21] LABS: pH Blood Venous 7.30 (7.34-7.37)
[2025-02-27 16:25] LABS: Bilirubin, Urine Neg (Neg); Color, Urine Yellow (P-Yellow); Glucose Qualitative, Urine Neg (Neg); Ketones, Urine Neg (Neg); Leukocyte Esterase, Urine 1+ (Neg); Protein, Urine 2+ (Neg); Specific Gravity, Urine 1.020 (1.003-1.022); Urobilinogen, Urine NORM (Normal)
[2025-02-27 16:26] LABS: BASOPHILS ABSOLUTE AUTO 0.06 K/mm3 (0.00-0.23); BASOPHILS PERCENT AUTO 1 % (0-2); EOSINOPHILS ABSOLUTE AUTO 0.21 K/mm3 (0.00-0.68); EOSINOPHILS PERCENT AUTO 3 % (0-6); Hematocrit 43.3 % (33.0-51.0); Hemoglobin 13.1 g/dL (11.5-16.0); IMMATURE GRAN ABSOLUTE AUTO 0.08 K/mm3 (0.00-0.10); IMMATURE GRAN PERCENT AUTO 1 % (0-1); LYMPHOCYTES ABSOLUTE AUTO 2.68 K/mm3 (0.84-5.20); LYMPHOCYTES PERCENT AUTO 36 % (21-46); MONOCYTES ABSOLUTE AUTO 0.76 K/mm3 (0.16-1.47); MONOCYTES PERCENT AUTO 10 % (4-13); Mean Corpuscular HGB Conc 30.3 g/dL (31.5-36.5); Mean Corpuscular Volume 94 fL (80-100); NEUTROPHILS ABSOLUTE AUTO 3.74 K/mm3 (1.96-9.15); NEUTROPHILS PERCENT AUTO 50 % (41-73); NRBC ABSOLUTE 0.00 K/mm3 (0.00-0.02); NRBC Auto 0.0 /100 WBC (0.0-0.2); Platelet Count 220 K/mm3 (150-400); RDW Coefficient Variation 14.6 % (11.7-14.2); RDW Standard Deviation 50.4 fL (35.1-46.3)
[2025-02-27 16:45] LABS: Alanine Aminotransfer (ALT/SGP 17.0 U/L (12-78); Albumin, Blood 2.9 g/dL (3.4-5.0); Albumin/Globulin Ratio 0.6 (0.8-1.8); Anion Gap 6.0 mmol/L (3-11); Aspartate Aminotrans (AST/SGOT 17.0 U/L (12-37); Bilirubin, Total 0.2 mg/dL (0.1-1.0); Blood Urea Nitrogen 37.0 mg/dL (8-24); CO2, Blood 31.0 mmol/L (21-32); Calcium, Blood 8.6 mg/dL (8.5-10.1); Chloride, Blood 106.0 mmol/L (98-108); Creatinine, Blood 1.38 mg/dL (0.40-1.00); Globulin, Blood 4.6 g/dL (2.2-4.0); Glucose, Blood 131.0 mg/dL (70-99); Potassium, Blood 4.9 mmol/L (3.5-5.5); Sodium, Blood 138.0 mmol/L (136-145); Total Protein, Blood 7.5 g/dL (6.4-8.2)
[2025-02-27] MEDS ORDERED: CefTRIAXone Sodium 1,000 MG in NS 50 ML IV ONE (16:55)
[2025-02-27] MEDS ORDERED: ACET325 PO (17:22)
[2025-02-27] MEDS ORDERED: BISA10S PR (17:23)
[2025-02-27] MEDS ORDERED: LOPE2C PO (17:24)
[2025-02-27] MEDS ORDERED: FAMO20 PO (17:24)
[2025-02-27] MEDS ORDERED: DULCOLAX400 MG/5 M PO (17:25)
[2025-02-27 18:57] LABS: Influenza A, PCR NEGATIVE (NEGATIVE); Influenza B, PCR NEGATIVE (NEGATIVE); Resp Syncytial Virus, PCR NEGATIVE (NEGATIVE); SARS-Cov-2 (COVID-19) PCR, MMC NEGATIVE (NEGATIVE)
[2025-02-27 19:55] LABS: pH Blood Venous 7.32 (7.34-7.37)
[2025-02-27] MEDS ORDERED: Lactobacil 2-S.Thermo-Bifido 1 1 Cap PO SCH (21:00)
[2025-02-28] MEDS ORDERED: Insulin Regular 100 UNIT/ML 10ML Vial SC SCH
[2025-02-28 03:55] VITALS: BP 165/63
[2025-02-28 05:07] LABS: BASOPHILS ABSOLUTE AUTO 0.04 K/mm3 (0.00-0.23); BASOPHILS PERCENT AUTO 1 % (0-2); EOSINOPHILS ABSOLUTE AUTO 0.25 K/mm3 (0.00-0.68); EOSINOPHILS PERCENT AUTO 3 % (0-6); Hematocrit 42.1 % (33.0-51.0); Hemoglobin 12.9 g/dL (11.5-16.0); IMMATURE GRAN ABSOLUTE AUTO 0.05 K/mm3 (0.00-0.10); IMMATURE GRAN PERCENT AUTO 1 % (0-1); LYMPHOCYTES ABSOLUTE AUTO 2.26 K/mm3 (0.84-5.20); LYMPHOCYTES PERCENT AUTO 27 % (21-46); MONOCYTES ABSOLUTE AUTO 0.78 K/mm3 (0.16-1.47); MONOCYTES PERCENT AUTO 9 % (4-13); Mean Corpuscular HGB Conc 30.6 g/dL (31.5-36.5); Mean Corpuscular Volume 94 fL (80-100); NEUTROPHILS ABSOLUTE AUTO 5.15 K/mm3 (1.96-9.15); NEUTROPHILS PERCENT AUTO 60 % (41-73); NRBC ABSOLUTE 0.00 K/mm3 (0.00-0.02); NRBC Auto 0.0 /100 WBC (0.0-0.2); Platelet Count 229 K/mm3 (150-400); RDW Coefficient Variation 14.6 % (11.7-14.2); RDW Standard Deviation 50.1 fL (35.1-46.3)
[2025-02-28 05:27] LABS: Alanine Aminotransfer (ALT/SGP 14.0 U/L (12-78); Albumin, Blood 2.8 g/dL (3.4-5.0); Albumin/Globulin Ratio 0.7 (0.8-1.8); Anion Gap 6.0 mmol/L (3-11); Aspartate Aminotrans (AST/SGOT 19.0 U/L (12-37); Bilirubin, Total 0.3 mg/dL (0.1-1.0); Blood Urea Nitrogen 35.0 mg/dL (8-24); CO2, Blood 31.0 mmol/L (21-32); Calcium, Blood 8.7 mg/dL (8.5-10.1); Chloride, Blood 108.0 mmol/L (98-108); Creatinine, Blood 1.24 mg/dL (0.40-1.00); Globulin, Blood 4.3 g/dL (2.2-4.0); Glucose, Blood 97.0 mg/dL (70-99); Magnesium, Blood 1.8 mg/dL (1.6-2.4); Potassium, Blood 4.8 mmol/L (3.5-5.5); Sodium, Blood 140.0 mmol/L (136-145); Total Protein, Blood 7.1 g/dL (6.4-8.2)
[2025-02-28 07:35] VITALS: BP 148/64
[2025-02-28] MEDS ORDERED: CefTRIAXone Sodium 1,000 MG in NS 100 ML IV SCH (09:00)
[2025-02-28] MEDS ORDERED: Enoxaparin 40 MG/0.4 ML SYR SC SCH (09:00)
[2025-02-28] MEDS ORDERED: Miconazole Nitrate 2% 85 GM PWD TOP SCH ×2 (10:00→21:00)
[2025-02-28 11:41] VITALS: BP 162/71
[2025-02-28] MEDS ORDERED: Ipratropium/Albuterol SulF 2.5-0.5MG/3 ML Amp INH SCH (12:10)
[2025-02-28] MEDS ORDERED: Albuterol 2.5 MG/3 ML VIAL INH PRN (12:10)
[2025-02-28] MEDS ORDERED: Ondansetron 4 MG SoluTab MM PRN (12:15)
[2025-02-28 16:23] VITALS: BP 160/66
[2025-02-28 19:58] VITALS: BP 164/67
[2025-02-28 23:03] VITALS: BP 148/54
[2025-03-01 03:38] VITALS: BP 162/69
[2025-03-01 04:37] LABS: Albumin, Blood 2.9 g/dL (3.4-5.0); Anion Gap 5 mmol/L (3-11); Blood Urea Nitrogen 31 mg/dL (8-24); CO2, Blood 34 mmol/L (21-32); Calcium, Blood 8.9 mg/dL (8.5-10.1); Chloride, Blood 103 mmol/L (98-108); Creatinine, Blood 1.19 mg/dL (0.40-1.00); Glucose, Blood 84 mg/dL (70-99); Magnesium, Blood 1.4 mg/dL (1.6-2.4); Phosphorus, Blood 2.7 mg/dL (2.5-4.9); Potassium, Blood 4.2 mmol/L (3.5-5.5); Sodium, Blood 138 mmol/L (136-145)
[2025-03-01] MEDS ORDERED: Mag Sulfate 1 GM/D5% 100ML 100 ML IV ONE (05:45)
[2025-03-01] MEDS ORDERED: Insulin Glargine 100 Unit/ML 3 ML SYR SC SCH (09:00)
[2025-03-01 09:55] VITALS: BP 159/68
[2025-03-01 12:39] LABS: pH Blood Venous 7.50 (7.34-7.37)
[2025-03-01 13:18] VITALS: BP 136/58
[2025-03-01 15:30] VITALS: BP 143/65
[2025-03-01] MEDS ORDERED: Insulin Regular 100 UNIT/ML 10ML Vial SC SCH (16:30)
[2025-03-01 17:47] VITALS: BP 156/61
[2025-03-01 20:46] VITALS: BP 151/60
[2025-03-02] VITALS (10 sets, daily range): BP systolic 142–172; BP diastolic 60–76
[2025-03-02 00:13] LABS: Anion Gap 8.0 mmol/L (3-11); Blood Urea Nitrogen 28.0 mg/dL (8-24); CO2, Blood 34.0 mmol/L (21-32); Calcium, Blood 9.0 mg/dL (8.5-10.1); Chloride, Blood 97.0 mmol/L (98-108); Creatinine, Blood 1.32 mg/dL (0.40-1.00); Glucose, Blood 135.0 mg/dL (70-99); Magnesium, Blood 1.5 mg/dL (1.6-2.4); Potassium, Blood 3.8 mmol/L (3.5-5.5); Sodium, Blood 135.0 mmol/L (136-145); Thyroid Stimulating Hormone 4.66 uIU/mL (0.360-4.800)
[2025-03-02] MEDS ORDERED: Potassium Chloride 10 Meq Tablet SA PO ONE (00:34)
[2025-03-02] MEDS ORDERED: Magnesium Sulf 2 GM/Water 50ML 50 ML IV ONE (01:00)
[2025-03-02 06:23] LABS: Hematocrit 42.5 % (33.0-51.0); Hemoglobin 13.2 g/dL (11.5-16.0); Mean Corpuscular HGB Conc 31.1 g/dL (31.5-36.5); Mean Corpuscular Volume 91 fL (80-100); NRBC ABSOLUTE 0.00 K/mm3 (0.00-0.02); NRBC Auto 0.0 /100 WBC (0.0-0.2); Platelet Count 235 K/mm3 (150-400); RDW Coefficient Variation 14.6 % (11.7-14.2); RDW Standard Deviation 48.2 fL (35.1-46.3)
[2025-03-02 06:44] LABS: Anion Gap 7.0 mmol/L (3-11); Blood Urea Nitrogen 26.0 mg/dL (8-24); CO2, Blood 35.0 mmol/L (21-32); Calcium, Blood 9.1 mg/dL (8.5-10.1); Chloride, Blood 98.0 mmol/L (98-108); Creatinine, Blood 1.23 mg/dL (0.40-1.00); Glucose, Blood 125.0 mg/dL (70-99); Potassium, Blood 4.9 mmol/L (3.5-5.5); Sodium, Blood 135.0 mmol/L (136-145)
[2025-03-02] MEDS ORDERED: Enoxaparin 40 MG/0.4 ML SYR SC SCH ×2 (09:30→21:00)
[2025-03-03] VITALS: BP 133/55
[2025-03-03 04:00] VITALS: BP 129/74
[2025-03-03 04:30] LABS: Anion Gap 10.0 mmol/L (3-11); Blood Urea Nitrogen 27.0 mg/dL (8-24); CO2, Blood 33.0 mmol/L (21-32); Calcium, Blood 9.0 mg/dL (8.5-10.1); Chloride, Blood 94.0 mmol/L (98-108); Creatinine, Blood 1.29 mg/dL (0.40-1.00); Glucose, Blood 111.0 mg/dL (70-99); Potassium, Blood 3.6 mmol/L (3.5-5.5); Sodium, Blood 133.0 mmol/L (136-145)
[2025-03-03 07:33] VITALS: BP 150/83
[2025-03-03 11:15] VITALS: BP 137/66
[2025-03-03] MEDS ORDERED: Potassium Chloride 10 Meq Tablet SA PO ONE (14:10)
[2025-03-03] MEDS ORDERED: Mag Sulfate 1 GM/D5% 100ML 100 ML IV STA (14:15)
[2025-03-03 15:40] VITALS: BP 115/57
[2025-03-03 20:36] VITALS: BP 116/51
[2025-03-04 00:10] VITALS: BP 125/58
[2025-03-04 04:29] VITALS: BP 144/59
[2025-03-04 07:36] VITALS: BP 146/68
[2025-03-04] MEDS ORDERED: FURO40 PO (10:12)
[2025-03-04] MEDS ORDERED: KLOR-CON 1010 ME9 PO (10:13)
== END 2025-03-04 11:05 | disposition home or self-care (01) | DRG 280 ==
LOC: ER 15:08 → ERHOLD 17:52 → PCU 17:52
PROVIDERS: Emergency Medicine; Family Medicine; Internal Medicine; ADMIT Student in an Organized Health Care Education/Training Program
DX: I13.0 Hypertensive heart and chronic kidney disease with heart failure and stage 1 through stage 4 chronic kidney disease, or unspecified chronic kidney disease (principal); G93.41 Metabolic encephalopathy; I21.A1 Myocardial infarction type 2; I50.33 Acute on chronic diastolic (congestive) heart failure; J96.01 Acute respiratory failure with hypoxia; J96.02 Acute respiratory failure with hypercapnia; J15.9 Unspecified bacterial pneumonia; N39.0 Urinary tract infection, site not specified; J44.1 Chronic obstructive pulmonary disease with (acute) exacerbation; G30.9 Alzheimer's disease, unspecified; M10.9 Gout, unspecified; K21.9 Gastro-esophageal reflux disease without esophagitis; B96.1 Klebsiella pneumoniae [K. pneumoniae] as the cause of diseases classified elsewhere; F02.80 Dementia in other diseases classified elsewhere, unspecified severity, without behavioral disturbance, psychotic disturbance, mood disturbance, and anxiety; E11.22 Type 2 diabetes mellitus with diabetic chronic kidney disease; N18.30 Chronic kidney disease, stage 3 unspecified; Z66 Do not resuscitate; G47.33 Obstructive sleep apnea (adult) (pediatric); Z87.891 Personal history of nicotine dependence; Z88.5 Allergy status to narcotic agent; Z79.4 Long term (current) use of insulin; Z79.899 Other long term (current) drug therapy; E83.42 Hypomagnesemia
CPT/HCPCS: 36415; 51701; 71045; 80048; 80053; 80069; 81001; 82803; 82947; 83605; 83735; 83880; 84145; 84443; 84484; 85025; 85027; 87040; 87077; 87086; 87186; 87637; 92526; 92610; 93005; 93010; 93306; 94640; 94660; 94664; 94762; 96365; 97110; 97162; 97166; 97530; 99285-25; A6590; A9270; J0696; J1650; J1815; J1938; J3475